=== PATIENT | female | born 1950 | race Caucasian/White ===

== ENCOUNTER → 2017-01-06 | Day surgery (SDC) | payer MEDICARE, OTHER ==
[~2017-01-06] VITALS: Ht 167.6 cm; Wt 57.0 kg
[~2017-01-06] MED LIST: *morphine SULFATE 8 MG/ML PERIprocedure ONLY ONE; ACETAMINOPHEN/CODEINE 300 MG/30 MG TAB PO PRN; CALC1TAB87 PO; CHLORHEXIDINE GLUCONATE 2 % 1 PACK (2 CLOTHS) TOPICAL PRN; COCO1000 PO; DEXAMETHASONE SOD PHOS 4 MG/ML VIAL IV ONE; DO NOT ADM ANY ANTICOAGULANT DRUGS PRN; HERB1CAP PO; INSULIN HUMAN REGULAR 1,000 UNITS/10 ML VIAL SQ PRN; KETOROLAC TROMETHAMINE 30 MG/ML (IVP) VIAL IV PUSH ONE; KETOROLAC TROMETHAMINE 30 MG/ML (IVP) VIAL ONE; LACTATED RINGER'S 1000 ML IV PRN; LIDOCAINE 2%/EPINEPHrine PF 1:200,000 20ML SDV ONE; LIDOCAINE HCL 1% PF 5 ML AMPULE OTHER ONE; METOPROLOL TARTRATE 25 MG TAB PO PRN; ONDANSETRON HCL 4 MG/2 ML VIAL IV PUSH ONE; POVIDONE IODINE 5% (ANTISEPSIS KIT) 4 APPLICATIONS EACH NARE PRN; PROPOFOL 200 MG/20 ML AMP IV ONE; SODIUM CHLORID 0.9% 500 ML IV PRN
[2017-01-06 18:00] VITALS: BP 142/74; PULSE 63; RESP 18; TEMP 97; O2SAT 100
--- NOTE | 2017-01-12 07:57 | MP ---
cc: JENNIFER SMITH KELLY L. MD DATE OF SURGERY 01/06/2017 PREOPERATIVE DIAGNOSES 1. 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 2. Status post prior hysterectomy. 3. Symptomatic skin tag right hip/flank area. POSTOPERATIVE DIAGNOSES 1. 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 2. Status post prior hysterectomy. 3. Symptomatic skin tag right hip/flank area. PROCEDURE Examination under anesthesia, colposcopy, multiple biopsies of the vaginal mucosa and excision of right hip/flank skin tag. SURGEON Hailey Lezama MD [employer] Chris surgical first assistant. ANESTHESIA Laryngeal mask anesthesia ESTIMATED BLOOD LOSS 20 cc. HISTORY A 66-year-old female who reported that it had been at least 15 years since her last gynecologic exam, had a hysterectomy remotely. States that she was asymptomatic and decided to go for routine exam. Pap smear showed high-grade dysplasia with some cells suspicious for invasive disease. She was counseled regarding these findings, recommended further evaluation. She did not believe she could tolerate exam in the office and we also agreed that he could get a better exam under anesthesia. She is counseled again in the preop holding area where she understands that procedure today may be diagnostic only. If there is an area of superficial dysplasia that can be excised, the plan would be to excise it. It may be a series of diagnostic biopsies. She brings to our attention a symptomatic the skin tag on the right hip/flank area approximately 1 cm in dimension. Her clothes rub this area and it is irritating to her and she asks if we can excise that. We discussed and reviewed that. Questions were answered and she agreed to move forward with surgery. FINDINGS A 1 cm polypoid skin tag, appeared benign, was removed without difficulty. On exam under anesthesia there was palpable nodularity across the vaginal apex and extending to the right corner and right proximal side of the vagina. Rectovaginal exam confirms there is nodularity that extends into the subvaginal tissue with some reduced mobility. There is no obvious extension or nodularity to the pelvic sidewall. There are relatively diffuse moderate atrophic changes. 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 Additional biopsies were obtained to try to clarify this diagnosis. PROCEDURE The patient was taken to the operating room and placed in dorsal lithotomy position after laryngeal mask anesthesia was administered. Time-out was undertaken. She was identified by sight recognition and hospital ID bracelet and the proposed procedure was reviewed and confirmed. She was carefully positioned in stirrups. Exam under anesthesia was performed with findings as described above. She was prepped and draped in sterile fashion. In-and-out catheterization of the bladder was performed. Dilute acetic acid was applied to all surfaces of the vagina. Inspection showed somewhat of an irregular cobblestone mucosa across the apex and toward the right corner of the vagina with friability and some increased vascular markings that had gross suspicion for invasive disease. The distal vagina and other areas of the vagina shows atrophic changes but no obvious neoplastic change. Lidocaine was injected with epinephrine. Biopsies were obtained, sent for frozen section analysis. They were suspicious for invasive cancer but uncertain if they would be interpreted diagnostically as invasive disease. Clinically the impression was that of invasive disease so in discussion with pathology we agreed additional biopsy should be obtained. Accordingly, additional biopsies were obtained from the central nodular tissue across the vaginal apex and at the left upper corner of the vagina, sent for permanent histopathologic analysis and these sites were rendered hemostatic with Monsel's solution. Inspection confirmed all sites were hemostatic. There were no remaining foreign objects in the vagina. Preliminary and final counts were correct. She was returned to dorsal supine position and was pending reversal of anesthesia when I left the operating room to precede her to the Post-Anesthesia Care Unit. MD SIERRA Odell/EMY /7:15 AM /7:42 AM
== END | disposition home or self-care (01) ==
LOC: HSDC 11:18
PROVIDERS: ATTEND Obstetrics & Gynecology Gynecologic Oncology
DX: D07.2 Carcinoma in situ of vagina (principal); R87.613 High grade squamous intraepithelial lesion on cytologic smear of cervix (HGSIL); D23.5 Other benign neoplasm of skin of trunk; E78.5 Hyperlipidemia, unspecified; K21.9 Gastro-esophageal reflux disease without esophagitis; M81.0 Age-related osteoporosis without current pathological fracture; Z85.41 Personal history of malignant neoplasm of cervix uteri; Z90.710 Acquired absence of both cervix and uterus
CPT/HCPCS: 86850; 86900; 86901; 88305; 88331; J1100; J1885; J2270; J2405; J3010; J7120